=== PATIENT | female | born 1975 | race African-American/Black ===

== ENCOUNTER 2019-06-10 11:39 | Emergency (ER) | payer BC, MEDICAID ==
[~2019-06-10] VITALS: Ht 170.2 cm; Wt 101.0 kg
[~2019-06-10 11:39] MED LIST: DIPH-514 PO; HYDR-519 PO
[2019-06-10 14:00] VITALS: BP 150/80
== END 2019-06-10 18:49 | disposition left against medical advice (07) ==
LOC: ER 11:39
DX: Z53.21 Procedure and treatment not carried out due to patient leaving prior to being seen by health care provider (principal); R07.9 Chest pain, unspecified; R06.02 Shortness of breath
CPT/HCPCS: 93005